=== PATIENT | female | born 1945 | race African-American/Black ===

== ENCOUNTER 2020-02-11 23:49 | Emergency (ER) | payer OTHER ==
--- OUTSIDE RECORDS SUMMARY | 2020-02-11 23:52 | XMS REPORT | Continuity of Care Document ---
:1945 Author Organization [facility] t Address [address] [place] [address] Care Team Providers Name Role Phone Unavailable Unavailable Unavailable Problems This patient has no known problems. Allergies, Adverse Reactions, Alerts This patient has no known allergies or adverse reactions. Medications Ordered Filled Start Stop Current Ordering Indication Dosage Frequency Signature Comments Components Source Medication Medication Date Date Medication? Clinician (SIG) Name Name Macroyan [place] 2019- No Na Garcia [address] [facility] daily with [facility] 00 :00 food l [facility] Sucralfate Sucralfate 2019- No Na Garcia [address] [facility]28 [facility] an [facility]:00 empty [facility] 00 :00 stomach l [facility] Cetirizine Cetirizine Yes Na Garcia [address] [facility] HCl HCl [facility] Ray Ray Yes Na Garcia [address] [facility] Aspirin EC Aspirin EC Devendra es - Low Dose Low Dose Memoria l [facility] Nasonex Nasonex Yes Na Garcia [address] [facility] [address] [facility] each [facility] - nostril [facility] Valsartan Valsartan Yes Na Garcia [address] [facility] Benzonatate Benzonatate Yes Na Garcia [address] [facility] NIFEdipine NIFEdipine Yes Na Garcia [address] [facility] ER ER on an [facility] - empty Memoria stomach l [facility] Montelukast Montelukast Yes Na Garcia [address] [facility] Sodium Sodium [facility] Protonix Protonix Yes Na Garcia [address] [facility] Simvastatin Simvastatin Yes Na Garcia [address] [facility] in the [facility] Spironolact Spironolact Yes Na Garcia [address] [facility] one one [facility] Metoprolol Metoprolol Yes Na Garcia [address] [facility] Tartrate Tartrate with food [facility] Procedures This patient has no known procedures. Encounters Start End Encounter Admission Attending Care Care Encounter Source Date/Time Date/Time Type Type Clinicians Facility Department ID 2019-12-19 2019-12-19 Outpatient [facility] [id number] [facility] 2019-12-13 2019-12-13 Outpatient [facility] [id number] [facility] 2019-10-01 2019-10-01 [facility] [id number] [facility] 15:30[facility]00 15:30:00 [employer] [facility] 2019-09-10 2019-09-10 Outpatient [facility]ML[facility] [id number] [facility] 2019-08-29 2019-08-29 [facility] [id number] [facility] 09:56:00 09:56:00 [facility] 2019-06-11 2019-06-11 [facility] [id number] [facility] 14:00:00 14:00:00 [facility] Results This patient has no known results.
[2020-02-12] MEDS ORDERED: MORPHINE 4 MG/ML SYR ONE (00:50)
[2020-02-12] MEDS ORDERED: ONDANSETRON 4 MG/2 ML VIAL ONE (00:50)
[2020-02-12] MEDS ORDERED: NA CHLORIDE 0.9% 1,000 ML ONE (00:51)
[2020-02-12 01:37] LABS: Absolute Lymphocytes (CBC) 2.7 K/uL (0.7-4.9); Basophils % 0.9 % (0-1.3); Hematocrit 36.4 % (36.0-45.0); Lymphocytes % 20.6 % (15.3-44.8); MPV 7.9 fL (7.6-11.3); RBC Red Blood Cell Count 4.35 M/uL (3.86-4.86)
[2020-02-12 01:55] LABS: ALT/SGPT 17 U/L (12-78); AST/SGOT 16 U/L (15-37); Albumin 3.9 g/dL (3.4-5.0); Alkaline Phosphatase 61 U/L (45-117); BUN Blood Urea Nitrogen 15 mg/dL (7-18); Bicarbonate 27 mmol/L (21-32); Bilirubin Direct < 0.1 mg/dL (0-0.2); Bilirubin Total 0.3 mg/dL (0.2-1.0); Glucose Level 91 mg/dL (74-106); Lipase 160 U/L (73-393); Protein, Total 8.9 g/dL (6.4-8.2); Sodium Level 137 mmol/L (136-145)
--- NOTE | 2020-02-12 03:31 | ER ---
Nurse's Notes [facility] Name: Jocelyn Taylor Age: 75 yrs Sex: Female : 1945 Arrival Date: 02/11/2020 Time: 23:51 Bed 16 Private MD: Diagnosis: Other and unspecified noninfective gastroenteritis and colitis Presentation: 02/11 00:03 Chief complaint: Patient states: abdominal pain that started this morning, nausea, dm5 vomited x 1 - bile, pain rated at 6/10 - 8/10 at its worst. Coronavirus screen: Client denies travel out of the [place] in the last 14 days. nausea, vomiting. Client presents with at least one sign or symptom that may indicate coronavirus-19. Standard/surgical mask placed on the client. Ebola Screen: Patient negative for fever greater than or equal to 101.5 degrees Fahrenheit, and additional compatible Ebola Virus Disease symptoms Patient denies exposure to infectious person. Patient denies travel to an Ebola-affected area in the 21 days before illness onset. No symptoms or risks identified at this time. Initial Sepsis Screen: Does the patient meet any 2 criteria? No. Patient's initial sepsis screen is negative. Does the patient have a suspected source of infection? Yes: Acute abdominal pain. Risk Assessment: Do you want to hurt yourself or someone else? Patient reports no desire to harm self or others. Onset of symptoms was February 11, 2020. 00:03 Method Of Arrival: Ambulatory dm5 00:03 Acuity: BLAS 3 dm5 Historical: - Allergies: 00:06 No Known Allergies; dm5 - PMHx: 00:06 High Cholesterol; Hypertension; GERD; seasonal allergies; dm5 - PSHx: 00:06 Hysterectomy; Cholecystectomy; Tonsillectomy; heart cath; dm5 - Immunization history:: Adult Immunizations up to date. - Family history:: not pertinent. - Social history:: Smoking status: Patient denies any tobacco usage or history of. Screenin:12 Abuse screen: Denies threats or abuse. Nutritional screening: No deficits noted. ll2 Tuberculosis screening: No symptoms or risk factors identified. Fall Risk None identified. Assessment: 02/10 23:55 General: Appears in no apparent distress. Behavior is calm, cooperative, appropriate ll2 for age. Pain: Complains of pain in right lower quadrant. Neuro: Level of Consciousness is awake, alert, obeys commands, Oriented to person, place, time, situation. Cardiovascular: Patient's skin is warm and dry. Respiratory: Airway is patent Respiratory effort is even, unlabored, Respiratory pattern is regular, symmetrical. GI: Bowel sounds present X 4 quads. Abd is soft Abdomen is tender to palpation in right lower quadrant. : No signs and/or symptoms were reported regarding the genitourinary system. EENT: No signs and/or symptoms were reported regarding the EENT system. Derm: Skin is intact, is healthy with good turgor, Skin is dry, Skin is normal, Skin temperature is warm. Musculoskeletal: Circulation, motion, and sensation intact. Range of motion: intact in all extremities. 02/11 00:55 Reassessment: Patient and/or family updated on plan of care and expected duration. Pain ll2 level reassessed. Patient is alert, oriented x 3, equal unlabored respirations, skin warm/dry/pink. 02:00 Reassessment: Patient and/or family updated on plan of care and expected duration. Pain ll2 level reassessed. Patient is alert, oriented x 3, equal unlabored respirations, skin warm/dry/pink. pt resting comfortably, denies pain at this time. 03:00 Reassessment: Patient and/or family updated on plan of care and expected duration. Pain ll2 level reassessed. Patient is alert, oriented x 3, equal unlabored respirations, skin warm/dry/pink. Vital Signs: 00:00 BP 115 / 45; Pulse 75; Resp 18; Temp 98.3; Pulse Ox 94% ; ll2 01:00 BP 116 / 57; Pulse 76; Resp 17; Pulse Ox 96% on R/A; ll2 02:00 BP 120 / 59; Pulse 71; Resp 18; Pulse Ox 95% on R/A; ll2 03:58 BP 104 / 53; Pulse 91; Resp 16; Temp 98.6; Pulse Ox 99% on R/A; ll2 ED Course: 02/10 23:51 Patient arrived in ED. am2 02/11 00:00 Arm band placed on right wrist. ll2 00:04 Triage completed. dm5 00:12 Poncho Rashid MD is Attending Physician. ma2 00:12 Patient has correct armband on for positive identification. Placed in gown. Bed in low ll2 position. Call light in reach. Side rails up X 1. 00:18 Mariah Ruano RN is Primary Nurse. ll2 02:55 CT Abd/Pelvis - IV Contrast Only In Process Unspecified. EDMS 03:54 No provider procedures requiring assistance completed. IV discontinued, intact, ll2 bleeding controlled, No redness/swelling at site. Pressure dressing applied. Administered Medications: 01:16 Drug: Zofran (Ondansetron) 4 mg Route: IVP; Site: left antecubital; ll2 02:15 Follow up: Response: No adverse reaction ll2 02:15 Follow up: Response: No adverse reaction; RASS: Alert and Calm (0) ll2 01:16 Drug: morphine 4 mg Route: IVP; Site: left antecubital; ll2 02:16 Follow up: Response: No adverse reaction; RASS: Alert and Calm (0) ll2 01:16 Drug: NS 0.9% 1000 ml Route: IV; Rate: 1000 ml; Site: left antecubital; ll2 03:50 Not Given (Physician Discretion): Rocephin 1 grams IV at calculated rate once; Given ll2 slow IV push per pharmacy instructions 03:51 Not Given (Physician Discretion): Flagyl 500 mg 100 ml IVPB at 200 ml/hr once over 30 ll2 mins 03:51 Drug: Flagyl 500 mg Route: PO; ll2 03:52 Follow up: Response: Medication administered at discharge. ll2 03:51 Not Given (Physician Discretion): cefPODOXime 100 mg PO once ll2 03:51 Drug: LevOfloxacin 500 mg Route: PO; ll2 03:52 Follow up: Response: Medication administered at discharge. ll2 Outcome: 03:30 Discharge ordered by . ma2 04:00 Discharged to home ambulatory. ll2 04:00 Condition: stable 04:00 Discharge instructions given to patient, Instructed on discharge instructions, follow up and referral plans. medication usage, Demonstrated understanding of instructions, follow-up care, medications, Prescriptions given X 3. 04:00 Patient left the ED. ll2 Signatures: Dispatcher [facility] Xiomara Mariscal RN RN dm5 Gela Armenta am2 Poncho Rashid MD MD ma2 Mariah Ruano, RN RN ll2
--- NOTE | 2020-02-12 03:31 | EDPHYS ---
Physician Documentation [facility] Name: Jocelyn Taylor Age: 75 yrs Sex: Female : 1945 Arrival Date: 02/11/2020 Time: 23:51 Bed 16 Private MD: ED Physician Poncho Rashid HPI: 02/11 00:43 This 75 yrs old Black Female presents to ER via Ambulatory with complaints of Abdominal ma2 Pain, Nausea. 00:43 The patient presents to the emergency department with nausea, vomiting. Onset: The ma2 symptoms/episode began/occurred gradually. Onset: The symptoms/episode began/occurred gradually, 1 day(s) ago. Possible causes: unknown. Associated signs and symptoms: Pertinent negatives: anorexia, constipation, dysuria, flatulence, GI bleeding. Severity of symptoms: At their worst the symptoms were mild in the emergency department the symptoms are unchanged. The patient has not experienced similar symptoms in the past. Historical: - Allergies: 00:06 No Known Allergies; dm5 - PMHx: 00:06 High Cholesterol; Hypertension; GERD; seasonal allergies; dm5 - PSHx: 00:06 Hysterectomy; Cholecystectomy; Tonsillectomy; heart cath; dm5 - Immunization history:: Adult Immunizations up to date. - Family history:: not pertinent. - Social history:: Smoking status: Patient denies any tobacco usage or history of. ROS: 00:43 Constitutional: Negative for fever, chills, and weight loss. ma2 00:43 All other systems are negative. Exam: 00:43 Constitutional: This is a well developed, well nourished patient who is awake, alert, ma2 and in no acute distress. Neck: Trachea midline, no thyromegaly or masses palpated, and no cervical lymphadenopathy. Supple, full range of motion without nuchal rigidity, or vertebral point tenderness. No Meningismus. Chest/axilla: Normal chest wall appearance and motion. Nontender with no deformity. No lesions are appreciated. Cardiovascular: Regular rate and rhythm with a normal S1 and S2. No gallops, murmurs, or rubs. Normal PMI, no JVD. No pulse deficits. Respiratory: Lungs have equal breath sounds bilaterally, clear to auscultation and percussion. No rales, rhonchi or wheezes noted. No increased work of breathing, no retractions or nasal flaring. Abdomen/GI: Soft, non-tender, with normal bowel sounds. No distension or tympany. No guarding or rebound. No evidence of tenderness throughout. Back: No spinal tenderness. No costovertebral tenderness. Full range of motion. Skin: Warm, dry with normal turgor. Normal color with no rashes, no lesions, and no evidence of cellulitis. MS/ Extremity: Pulses equal, no cyanosis. Neurovascular intact. Full, normal range of motion. Neuro: Awake and alert, GCS 15, oriented to person, place, time, and situation. Cranial nerves II-XII grossly intact. Motor strength 5/5 in all extremities. Sensory grossly intact. Cerebellar exam normal. Normal gait. Vital Signs: 00:00 BP 115 / 45; Pulse 75; Resp 18; Temp 98.3; Pulse Ox 94% ; ll2 01:00 BP 116 / 57; Pulse 76; Resp 17; Pulse Ox 96% on R/A; ll2 02:00 BP 120 / 59; Pulse 71; Resp 18; Pulse Ox 95% on R/A; ll2 03:58 BP 104 / 53; Pulse 91; Resp 16; Temp 98.6; Pulse Ox 99% on R/A; ll2 MDM: 00:12 Patient medically screened. [facility] 00:43 Differential diagnosis: cholecystitis, pancreatitis, appendicitis, diverticulitis, ms2 viral gastroenteritis, gastroenteritis. 03:29 Data reviewed: vital signs, nurses notes. Counseling: I had a detailed discussion with [facility] the patient and/or guardian regarding: the historical points, exam findings, and any diagnostic results supporting the discharge/admit diagnosis, the presence of at least one elevated blood pressure reading (>120/80) during this emergency department visit, the need for outpatient follow up. Response to treatment: the patient's symptoms have markedly improved after treatment. ED course: ct shows mild colitis wbc mildly elevated, vs wnl, her symptoms all resolved .. she want to go home, i explained that this could be an early inflammatory condition and she will return if symptoms worsen . 02/11 00:14 Order name: Basic Metabolic Panel [facility] 02/11 00:14 Order name: CBC with Diff [facility] 02/11 00:14 Order name: Hepatic Function [facility] 02/11 00:14 Order name: Lipase [facility] 02/11 01:40 Order name: CBC with Automated Diff; Complete Time: 01:58 EDMS 02/11 01:55 Order name: Basic Metabolic Panel; Complete Time: 01:58 EDMS 02/11 00:14 Order name: CT Abd/Pelvis - IV Contrast Only ma2 02/11 01:55 Order name: Liver (Hepatic) Function; Complete Time: 01:58 EDMS 02/11 01:55 Order name: Lipase; Complete Time: 01:58 EDMS 02/11 00:14 Order name: IV Saline Lock; Complete Time: 01:14 ma2 02/11 00:14 Order name: NPO; Complete Time: 01:40 ma2 Administered Medications: 01:16 Drug: Zofran (Ondansetron) 4 mg Route: IVP; Site: left antecubital; ll2 02:15 Follow up: Response: No adverse reaction ll2 02:15 Follow up: Response: No adverse reaction; RASS: Alert and Calm (0) ll2 01:16 Drug: morphine 4 mg Route: IVP; Site: left antecubital; ll2 02:16 Follow up: Response: No adverse reaction; RASS: Alert and Calm (0) ll2 01:16 Drug: NS 0.9% 1000 ml Route: IV; Rate: 1000 ml; Site: left antecubital; ll2 03:50 Not Given (Physician Discretion): Rocephin 1 grams IV at calculated rate once; Given ll2 slow IV push per pharmacy instructions 03:51 Not Given (Physician Discretion): Flagyl 500 mg 100 ml IVPB at 200 ml/hr once over 30 ll2 mins 03:51 Drug: Flagyl 500 mg Route: PO; ll2 03:52 Follow up: Response: Medication administered at discharge. ll2 03:51 Not Given (Physician Discretion): cefPODOXime 100 mg PO once ll2 03:51 Drug: LevOfloxacin 500 mg Route: PO; ll2 03:52 Follow up: Response: Medication administered at discharge. ll2 Disposition: 02/12/20 03:30 Discharged to Home. Impression: Other and unspecified noninfective gastroenteritis and colitis. - Condition is Stable. - Discharge Instructions: Colitis. - Prescriptions for Flagyl 500 mg Oral Tablet - take 1 tablet by ORAL route every 12 hours for 7 days; 14 tablet. cefpodoxime 100 mg Oral Tablet - take 1 tablet by ORAL route every 12 hours for 10 days take with food; 20 tablet. Diclofenac Sodium 75 mg Oral Tablet Sustained Release - take 1 tablet by ORAL route 2 times per day; 30 tablet. - Medication Reconciliation Form, Thank You Letter, Antibiotic Education, Prescription Opioid Use form. - Follow up: Private Physician; When: Tomorrow; Reason: Continuance of care. Signatures: Dispatcher [facility] Xiomara Mariscal RN RN dm5 Poncho Rashid MD MD ma2 Mariah Ruano RN RN ll2 Corrections: (The following items were deleted from the chart) 04:00 03:30 02/12/2020 03:30 Discharged to Home. Impression: Other and unspecified ll2 noninfective gastroenteritis and colitis. Condition is Stable. Discharge Instructions: Colitis. Prescriptions for Flagyl 500 mg Oral Tablet - take 1 tablet by ORAL route every 12 hours for 7 days; 14 tablet, cefpodoxime 100 mg Oral Tablet - take 1 tablet by ORAL route every 12 hours for 10 days take with food; 20 tablet, Diclofenac Sodium 75 mg Oral Tablet Sustained Release - take 1 tablet by ORAL route 2 times per day; 30 tablet. and Forms are Medication Reconciliation Form, Thank You Letter, Antibiotic Education, Prescription Opioid Use. Follow up: Private Physician; When: Tomorrow; Reason: Continuance of care. ma2
[2020-02-12] MEDS ORDERED: metroNIDAZOLE 500 MG TABLET ONE (04:03)
[2020-02-12] MEDS ORDERED: levoFLOXacin 500 MG TAB ONE (04:04)
--- NOTE | 2020-02-12 13:48 | RAD REPORT ---
EXAM DESCRIPTION: CT - Abdomen Pelvis W Contrast - 02/12/2020 6:57 am CLINICAL HISTORY: ABD PAIN COMPARISON: None. TECHNIQUE: CT ABDOMEN PELVIS WITH IV CONTRAST on 02/12/2020 12:14 AM RELIEF MATE This exam was performed according to our departmental dose-optimization program, which includes autom ated exposure control, adjustment of the mA and/or kV according to patient size and/or use of iterati ve reconstruction technique. FINDINGS: Lower lungs are clear. Abdomen: Liver is fatty in attenuation. There is a tiny cyst in the anterior liver. There is no bilia ry dilatation. Cholecystectomy was performed. The pancreas and spleen are normal in appearance. The a drenal glands and kidneys are unremarkable. Abdominal aorta is normal in course and caliber without aneurysm. There is no free air. There is no r etroperitoneal adenopathy. Pelvis: There are several fluid-filled small bowel loops in the left abdomen. Urinary bladder is unre markable. There is no free fluid. Appendix is normal. There is mild inflammation the right lower quad rant of unclear significance. Skeleton: There are no acute osseous findings. No suspicious bony lesions. IMPRESSION: Difficult to exclude early small bowel obstruction. Nonspecific inflammatory changes in the right lower quadrant with normal appendix. Electronically signed by: Hussein Hearn MD 02/12/2020 3:07 AM RELIEF MATE Due to temporary technical issues with the PACS/Fluency reporting system, reports are being signed by the in house radiologists without review as a courtesy to insure prompt reporting. The interpreting radiologist is fully responsible for the content of the report.
[2020-02-13 05:24] VITALS: BP 104/53; TEMP 98.6; O2SAT 99
== END 2020-02-12 04:00 | disposition home or self-care (01) ==
LOC: ER 23:49
DX: K52.89 Other specified noninfective gastroenteritis and colitis (principal); I10 Essential (primary) hypertension
CPT/HCPCS: 85025; 80048; 36415; 80076; 83690; 74177; 96375; 96374; 99283; Q9967; J7030; J2405

== ENCOUNTER 2021-04-21 06:25 | Day surgery (SDC) | payer OTHER ==
[2021-04-21] MEDS ORDERED: Ringers Lactate 1,000 ML IV ONE (06:37)
[2021-04-21] MEDS ORDERED: LIDOCAINE 1% W/EPI 1:100,000 MDV 50 ML VIAL ONE (07:14)
[2021-04-21] MEDS ORDERED: dexAMETHasone 10 MG/ML VIAL ONE (07:27)
[2021-04-21] MEDS ORDERED: propofoL 200 MG/20 ML VIAL IV ONE (07:27)
[2021-04-21] MEDS ORDERED: LIDOCAINE 2% MPF 5 ML VIAL ONE (07:27)
[2021-04-21] MEDS ORDERED: FENTANYL CITR 100 MCG/2 ML ONE (07:27)
[2021-04-21] MEDS ORDERED: ONDANSETRON 4 MG/2 ML VIAL ONE (07:36)
[2021-04-21] MEDS ORDERED: EPHEDRINE SULF 50 MG/ML VIAL ONE (07:47)
[2021-04-21] MEDS ORDERED: SILVER NITRATE 1 APPL TOP ONE ×2 (08:04→08:42)
[2021-04-21] MEDS ORDERED: HYDROCODONE/APAP 5/325 MG TAB PO PRN (08:47)
[2021-04-21] MEDS ORDERED: ASCORBIC ACID 500 MG TABLET PO SCH (09:00)
[2021-04-21] MEDS ORDERED: HOME MED 1 EA UNK (Spironolactone [Spironolactone] 50 MG Tablet) PO SCH (09:00)
[2021-04-21] MEDS ORDERED: MOMETASONE FUROATE PUMP NS SCH (09:00)
[2021-04-21] MEDS ORDERED: HOME MED 1 EA UNK (Metoprolol Tartrate [Metoprolol Tartrate] 100 MG Tablet) PO SCH (09:00)
[2021-04-21] MEDS ORDERED: PANTOPRAZOLE 40MG TABLET PO SCH (09:00)
[2021-04-21] MEDS ORDERED: HOME MED 1 EA UNK (Valsartan [Diovan] 320 MG Tablet) PO SCH (09:00)
[2021-04-21] MEDS ORDERED: HOME MED 1 EA UNK (Omega-3 Fatty Acids [Omega-3] 1,000 MG Capsule) PO SCH (09:00)
[2021-04-21] MEDS ORDERED: VITAMIN D 5,000 UNIT CAP PO SCH (09:00)
[2021-04-21] MEDS ORDERED: HOME MED 1 EA UNK (Cetirizine Hcl [Cetirizine Hcl] 10 MG Tablet) PO SCH (09:00)
[2021-04-21] MEDS ORDERED: NIFEDIPINE XL 30 MG TABLET PO SCH (09:00)
[2021-04-21] MEDS ORDERED: HOME MED 1 EA UNK (Biotin [Biotin] 1 MG Capsule) PO SCH (09:00)
[2021-04-21] MEDS ORDERED: HOME MED 1 EA UNK (Multivitamin [Multivitamin] Tablet) PO SCH (09:00)
[2021-04-21] MEDS ORDERED: HOME MED 1 EA UNK (L.Acidoph,Paracasei, B.Lactis [Probiotic] Capsule) PO SCH (09:00)
[2021-04-21 09:07] VITALS: TEMP 97.5
[2021-04-21 09:11] VITALS: BP 122/65; O2SAT 98
--- NOTE | 2021-04-21 09:12 | P.BOP ---
Preoperative diagnosis: PMB, AMH, VVA Postoperative diagnosis: same Primary procedure: Vulvar and vaginal colposcopy, cystourethroscopy Gas Jockey: NONE,NONE Estimated blood loss: min Specimen: rt vulvar (inner labia minora) Rt fornix, tana-urethral Findings: rt flat tumor, and forniceal neovascularization Anesthesia: MAC Transferred to: Recovery Room Condition: Good
[2021-04-21] MEDS ORDERED: HOME MED 1 EA UNK (Simvastatin [Simvastatin] 40 MG Tablet) PO SCH (21:00)
[2021-04-21] MEDS ORDERED: MONTELUKAST 10 MG TAB PO SCH (21:00)
[2021-04-23] MEDS ORDERED: ASPIRIN EC 81 MG TAB PO SCH (09:00)
--- NOTE | 2021-04-23 10:30 | OP ---
Date of Procedure: 04/21/2021 Surgeon: Carmela Metzger MD Automotive Engineering Teacher: No assistants. Preoperative Diagnoses: Postmenopausal bleeding in a post hysterectomy patient, asymptomatic microsc opic hematuria, vulvovaginal atrophy. Postoperative Diagnoses: Postmenopausal bleeding in a post hysterectomy patient, asymptomatic micros copic hematuria, vulvovaginal atrophy. Procedures Performed: Vulvar and vaginal colposcopy, cystourethroscopy. Anesthesia: MAC. Estimated Blood Loss: Minimal. Specimens: Right vulvar (inner labia minor) and right fornix/periurethral specimens. 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 This is in the right paraurethral area. Complications: No complications. Drains: No drains. Condition: Stable. Ebl: Minimal. Indications: The patient is a 76-year-old female, presented with postmenopausal bleeding. She is st atus post hysterectomy. The vaginal vault was clear and could not find a source of bleeding. On her urine dip and on microscopy, she had asymptomatic microscopic hematuria. Description Of Procedure: So, she was consented for vulvar and vaginal colposcopy, possible biopsies and evaluation of the bladder and urethra with a cystourethroscopy for her image. She was consented and brought to the OR. She was placed in supine fashion on the operating table. General anesthesia was given. She was placed in dorsal lithotomy position. SCDs were started. Vulva and vagina were all painted with dilute acetic acid. Then, after a minute, vulvar colposcopy was performed. Initial visualization before the application of vinegar was normal accepting for the new vascular changes ri ght underneath the urethra and the right forniceal area, periurethral area. Then, on palpation, I co uld feel the tough spots on this side. Then, after looking with the microscope and the colposcope, I found that there were some vascular changes in the center of this flat thick lesion on the right lab ia. So, I took a look at it. Punch biopsies with 3 mm punches were done x2. Then, these were cut w ith scissors and handed out for permanent pathology. On the periurethral area, another biopsy was ta jono. Then, hemostasis was secured with the help of silver nitrate stick and the patient was complete ly hemostatic. She was given some pain medications. After finishing the vulvar and vaginal part, th en cystoscopy was performed with a 30-degree lens, normal saline and 17-Belarusian sheath. The entire bl adder was well visualized. No evidence of any tumor in the bladder or other lesions. No abnormal ve ssels. No evidence of any diverticula or stones. The entire bladder was well visualized. During th e exit, the lens was changed to 0 degree to vinegar with the urethroscopy and it was normal, unremark able. All the instruments were removed. Instrument, needle, and sponge counts were correct at the e nd of the case. The patient tolerated the procedure well. She was recovered from anesthesia and sanchez en to PACU in stable condition. She has a 1-week follow up with me. CARLA Voice ID: [id number] Report ID: [id number]
== END 2021-04-21 10:15 | disposition home or self-care (01) ==
LOC: OR 06:25
PROVIDERS: ATTEND Obstetrics & Gynecology
PROC: 0UJH8ZZ Inspection of Vagina and Cul-de-sac, Via Natural or Artificial Opening Endoscopic (ICD-10-PCS; 2021-04-21)
PROC: 0TBD8ZX Excision of Urethra, Via Natural or Artificial Opening Endoscopic, Diagnostic (ICD-10-PCS; 2021-04-21)
PROC: 0UJH8ZZ Inspection of Vagina and Cul-de-sac, Via Natural or Artificial Opening Endoscopic (ICD-10-PCS; principal; 2021-04-21 07:30)
DX: N95.0 Postmenopausal bleeding (principal); N95.2 Postmenopausal atrophic vaginitis; R31.29 Other microscopic hematuria; I10 Essential (primary) hypertension
CPT/HCPCS: 88305; 57420; 56821; 52204; J2704; J3010; J1100; J7120; J2405

== ENCOUNTER 2022-10-11 13:40 | Emergency (ER) | payer OTHER ==
--- OUTSIDE RECORDS SUMMARY | 2022-10-11 13:45 | XMS REPORT | Continuity of Care Document ---
:1945 Author Organization [facility] t Address [address] [place] [address] Care Team Providers Name Role Phone Michelle Montes De Oca Attending Clinician Unavailable Vandana Bruno Attending Clinician Unavailable Rosi Garcia Attending Clinician Unavailable YULIANA GOMEZ Attending Clinician Unavailable Payers Payer Name Policy Type Policy Number Effective Date Expiration Date S ource AETNA MEDICARE 53 [id number] 2019 Common S pirit 00:00:00 - [facility] AETNA MEDICARE [id number] 2019 ADV 00:00:00 Problems Condition Condition Condition Status Onset Resolution Last Treating Co mments Source Name Details Category Date Date Treatment Clinician Date [id number] Stage 3b Problem Comm on chronic Spirit kidney - [facility]I disease ([facility] [id number] 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 [facility] [id number] Stage 4 Problem Commo n chronic Spirit kidney - [facility] disease [facility] [id number] Essential Problem Comm on hypertensi Spirit on - [facility] [id number] +5th digit Problem Co mmon eff Spirit 11/22/19*CK - [facility]I D (chronic kidney [facility] disease), Medical stage III Center [id number] Anemia of Problem Com mon other Spirit chronic - [facility] disease [facility] [id number] Gastroesop Problem Co mmon hageal [facility] reflux [facility] Center specified [id number] Eye muscle Problem Co mmon twitches Spirit - [facility] [id number] Seasonal Problem Comm on allergies [facility] [id number] Mixed Problem Common hyperlipid [facility] emia [facility] Hydrourete Hydrourete Problem C ommon r r, left [facility] [id number] Chronic Problem Commo n kidney Spirit disease, - [facility] stage 3a [facility] [id number] Primary Problem Comm on osteoarthr Spirit itis [facility] right knee [facility] [id number] Acute pain Problem Com mon of right [facility] knee [facility] Allergies, Adverse Reactions, Alerts Allergy Allergy Status Severity Reaction(s) Onset Inactive Treating Comm ents Source Name Type Date Date Clinician NO KNOWN Drug Active Univers ALLERGIE Class ity of S [facility] Social History Social Habit Start Date Stop Date Quantity Comments Source History of Tobacco Use Co mmon [facility] Sex Assigned At Com mon [facility] Smoking Status Start Date Stop Date Source Never Smoker [facility] Medications Ordered Filled Start Stop Current Ordering Indication Dosage Frequency Signature Comments Components Source Medication Medication Date Date Medication? Clinician (SIG) Name Name Zofran 4 MG Zofran 4 MG No BID Zofran 4 5-05 MG 00:00: 00 Meclizine Meclizine No 1{table Meclizine HCl 25 MG HCl 25 MG 5-05 t_as_ne HCl 25 MG 00:00: eded} 00 Meclizine Meclizine No 1{table Meclizine HCl 25 MG HCl 25 MG 5-05 t_as_ne HCl 25 MG 00:00: eded} 00 Zofran 4 MG Zofran 4 MG 2021- No BID Zofran 4 5-05 MG 00:00: 00 Meclizine Meclizine 2021- No 1{table Meclizine HCl 25 MG HCl 25 MG 5-05 t_as_ne HCl 25 MG 00:00: eded} 00 Zofran 4 MG Zofran 4 MG 2021-0 No BID Zofran 4 5-05 MG 00:00: 00 Zofran 4 MG Zofran 4 MG 2021-0 No BID Zofran 4 5-05 MG 00:00: 00 Meclizine Meclizine 2-0 No 1{table Meclizine HCl 25 MG HCl 25 MG 5-05 t_as_ne HCl 25 MG 00:00: eded} 00 Meclizine Meclizine 2-0 No 1{table Meclizine HCl 25 MG HCl 25 MG 5-05 t_as_ne HCl 25 MG 00:00: eded} 00 Zofran 4 MG Zofran 4 MG 2-0 No BID Zofran 4 5-05 MG 00:00: 00 Zofran 4 MG Zofran 4 MG 2-0 No BID Zofran 4 5-05 MG 00:00: 00 Meclizine Meclizine 2-0 No 1{table Meclizine HCl 25 MG HCl 25 MG 5-05 t_as_ne HCl 25 MG 00:00: eded} 00 Zofran 4 MG Zofran 4 MG 2-0 No BID Zofran 4 5-05 MG 00:00: 00 Meclizine Meclizine 2-0 No 1{table Meclizine HCl 25 MG HCl 25 MG 5-05 t_as_ne HCl 25 MG 00:00: eded} 00 Bupivicaine Bupivicaine 2020-0 No 2.5mg Common [place] 3-29 Spirit 00:00: - [facility]I 00 [facility] Kenalog Kenalog 2020-0 No 40mg Common (Triamcinol (Triamcinol 3-29 S pirit one) one) 00:00: - CHI 00 [facility] Bupivicaine Bupivicaine 2020-0 No 2.5mg Common [place] 3-29 Spirit 00:00: - CHI 00 [facility] Kenalog Kenalog 2020-0 No 40mg Common (Triamcinol (Triamcinol 3-29 S pirit one) one) 00:00: - CHI 00 [facility] Bupivicaine Bupivicaine 1-0 No 2.5mg Common [place] 3-29 Spirit 00:00: - CHI 00 [facility] Kenalog Kenalog 2020-0 No 40mg Common (Triamcinol (Triamcinol 3-29 S pirit one) one) 00:00: - CHI 00 [facility] Bupivicaine Bupivicaine 2020-0 No 2.5mg Common [place] 3-29 Spirit 00:00: - CHI 00 [facility] Kenalog Kenalog 2020-0 No 40mg Common (Triamcinol (Triamcinol 3-29 S pirit one) one) 00:00: - CHI 00 [facility] Bupivicaine Bupivicaine 2020-0 No 2.5mg Common [place] 3-29 Spirit 00:00: - CHI 00 [facility] Kenalog Kenalog 2020-0 No 40mg Common (Triamcinol (Triamcinol 3-29 S pirit one) one) 00:00: - CHI 00 [facility] Bupivicaine Bupivicaine 2020-0 No 2.5mg Common [place] 3-29 Spirit 00:00: - CHI 00 [facility] Kenalog Kenalog 2020-0 No 40mg Common (Triamcinol (Triamcinol 3-29 S pirit one) one) 00:00: - CHI 00 [facility] Bupivicaine Bupivicaine 2020-0 No 2.5mg Common [place] 3-29 Spirit 00:00: - CHI 00 [facility] Kenalog Kenalog 2020-0 No 40mg Common (Triamcinol (Triamcinol 3-29 S pirit one) one) 00:00: - CHI 00 [facility] Bupivicaine Bupivicaine 2020-0 No 2.5mg Common [place] 3-29 Spirit 00:00: - CHI 00 [facility] Kenalog Kenalog 2020-0 No 40mg Common (Triamcinol (Triamcinol 3-29 S pirit one) one) 00:00: - CHI 00 [facility] Macrobid Macrobid 2020- No Na Garcia 1 capsule Common 09-30 twice Spirit 00:00: 00:00 daily with - CHI 00 :00 food [facility] Sucralfate Sucralfate 2019-0 2020- No Na Garcia 1 tablet Common 08-28 on an Spirit 00:00: 00:00 empty - CHI 00 :00 stomach [facility] Cetirizine Cetirizine Yes Na Garcia 1 tablet Common HCl HCl [facility] Ray Ray Yes Na Garcia 1 tablet Common Aspirin EC Aspirin EC Spi rit Low Dose Low Dose [facility] Nasonex Nasonex Yes Na Garcia 2 sprays Co mmon in each Spirit nostril [facility] Valsartan Valsartan Yes Na Garcia 1 tablet Common [facility] Benzonatate Benzonatate Yes Na Garcia 1 capsule Common [facility] NIFEdipine NIFEdipine Yes Na Garcia 1 tablet Common ER ER on an Spirit empty - CHI stomach [facility] Montelukast Montelukast Yes Na Garcia 1 tablet Common Sodium Sodium [facility] Protonix Protonix Yes Na Garcia 1 tablet Common [facility] Simvastatin Simvastatin Yes Na Garcia 1 tablet Common in the [facility] evening [facility] Spironolact Spironolact Yes Na Garcia 1 tablet Common one one [facility] Metoprolol Metoprolol Yes Na Garcia 1 tablet Common Tartrate Tartrate with food Sp [facility] Protonix 40 Protonix 40 No 1{table QD Protonix MG MG t} 40 MG Sucralfate Sucralfate No Sucralfate 1 GM 1 GM 1 GM Simvastatin Simvastatin No 1{table QD Simvastati 40 MG 40 MG t_in_th n 40 MG e_eveni ng} Benzonatate Benzonatate No 1{capsu TID Benzonatat 200 MG 200 MG le} e 200 MG Magnesium Magnesium No Magnesium Montelukast Montelukast No Montelukas Sodium 10 Sodium 10 t Sodium MG MG 10 MG NIFEdipine NIFEdipine No 1{table QD NIFEdipine ER 60 MG ER 60 MG t_on_an ER 60 MG _empty_ stomach } Cetirizine Cetirizine No 1{table QD Cetirizine HCl 10 MG HCl 10 MG t} HCl 10 MG Pantoprazol Pantoprazol No Pantoprazo e Sodium 40 e Sodium 40 le Sodium MG MG 40 MG Spironolact Spironolact No Spironolac one 50 MG one 50 MG tone 50 MG Nasonex 50 Nasonex 50 No 2{spray QD Nasonex 50 MCG/ACT MCG/ACT s_in_ea MCG/ACT ch_nost ril} Metoprolol Metoprolol No 1{table BID Metoprolol Tartrate Tartrate t_with_ Tartrate 100 MG 100 MG food} 100 MG Simvastatin Simvastatin No Simvastati 40 MG 40 MG n 40 MG Pantoprazol Pantoprazol No Pantoprazo e Sodium e Sodium le Sodium Metoprolol Metoprolol No Metoprolol Tartrate Tartrate Tartrate 100 MG 100 MG 100 MG NIFEdipine NIFEdipine No 1{table QD NIFEdipine ER 60 MG ER 60 MG t_on_an ER 60 MG _empty_ stomach } Valsartan Valsartan No 1{table QD Valsartan 320 MG 320 MG t} 320 MG Valsartan Valsartan No Valsartan 320 MG 320 MG 320 MG Spironolact Spironolact No 1{table QD Spironolac one 50 MG one 50 MG t} tone 50 MG Ray Ray No 1{table QD Ray Aspirin EC Aspirin EC t} Aspirin EC Low Dose 81 Low Dose 81 Low Dose MG MG 81 MG Azithromyci Azithromyci No QD Azithromyc n 250 MG n 250 MG in 250 MG Sucralfate Sucralfate No Sucralfate 1 GM 1 GM 1 GM Cetirizine Cetirizine No Cetirizine HCl 10 MG HCl 10 MG HCl 10 MG Aptible No 1{table QD Ray Aspirin EC Aspirin EC t} Aspirin EC Low Dose 81 Low Dose 81 Low Dose MG MG 81 MG Simvastatin Simvastatin No Simvastati 40 MG 40 MG n 40 MG Nasonex 50 Nasonex 50 No 2{spray QD Nasonex 50 MCG/ACT MCG/ACT s_in_ea MCG/ACT ch_nost ril} Montelukast Montelukast No Montelukas Sodium 10 Sodium 10 t Sodium MG MG 10 MG Pantoprazol Pantoprazol No Pantoprazo e Sodium e Sodium le Sodium Spironolact Spironolact No Spironolac one 50 MG one 50 MG tone 50 MG Pantoprazol Pantoprazol No Pantoprazo e Sodium 40 e Sodium 40 le Sodium MG MG 40 MG Albuterol Albuterol No 2{puffs Albuterol Sulfate HFA Sulfate HFA } Sulfate 108 (90 108 (90 HFA 108 Base) Base) (90 Base) MCG/ACT MCG/ACT MCG/ACT NIFEdipine NIFEdipine No 1{table QD NIFEdipine ER 60 MG ER 60 MG t_on_an ER 60 MG _empty_ stomach } Simvastatin Simvastatin No 1{table QD Simvastati 40 MG 40 MG t_in_th n 40 MG e_eveni ng} predniSONE predniSONE No QD predniSONE 10 MG 10 MG 10 MG Spironolact Spironolact No 1{table QD Spironolac one 50 MG one 50 MG t} tone 50 MG Protonix 40 Protonix 40 No 1{table QD Protonix MG MG t} 40 MG Metoprolol Metoprolol No 1{table BID Metoprolol Tartrate Tartrate t_with_ Tartrate 100 MG 100 MG food} 100 MG Valsartan Valsartan No Valsartan 320 MG 320 MG 320 MG NIFEdipine NIFEdipine No 1{table QD NIFEdipine ER 60 MG ER 60 MG t_on_an ER 60 MG _empty_ stomach } Magnesium Magnesium No Magnesium Benzonatate Benzonatate No 1{capsu TID Benzonatat 200 MG 200 MG le} e 200 MG Metoprolol Metoprolol No Metoprolol Tartrate Tartrate Tartrate 100 MG 100 MG 100 MG Cetirizine Cetirizine No Cetirizine HCl 10 MG HCl 10 MG HCl 10 MG Simvastatin Simvastatin No Simvastati 40 MG 40 MG n 40 MG Spironolact Spironolact No 1{table QD Spironolac one 50 MG one 50 MG t} tone 50 MG NIFEdipine NIFEdipine No 1{table QD NIFEdipine ER 60 MG ER 60 MG t_on_an ER 60 MG _empty_ stomach } Valsartan Valsartan No Valsartan 320 MG 320 MG 320 MG Simvastatin Simvastatin No 1{table QD Simvastati 40 MG 40 MG t_in_th n 40 MG e_eveni ng} Montelukast Montelukast No Montelukas Sodium 10 Sodium 10 t Sodium MG MG 10 MG Spironolact Spironolact No Spironolac one 50 MG one 50 MG tone 50 MG Nasonex 50 Nasonex 50 No 2{spray QD Nasonex 50 MCG/ACT MCG/ACT s_in_ea MCG/ACT ch_nost ril} Pantoprazol Pantoprazol No Pantoprazo e Sodium 40 e Sodium 40 le Sodium MG MG 40 MG predniSONE predniSONE No QD predniSONE 10 MG 10 MG 10 MG Metoprolol Metoprolol No 1{table BID Metoprolol Tartrate Tartrate t_with_ Tartrate 100 MG 100 MG food} 100 MG Benzonatate Benzonatate No 1{capsu TID Benzonatat 200 MG 200 MG le} e 200 MG Sucralfate Sucralfate No Sucralfate 1 GM 1 GM 1 GM Ray Ray No 1{table QD Ray Aspirin EC Aspirin EC t} Aspirin EC Low Dose 81 Low Dose 81 Low Dose MG MG 81 MG Metoprolol Metoprolol No Metoprolol Tartrate Tartrate Tartrate 100 MG 100 MG 100 MG NIFEdipine NIFEdipine No 1{table QD NIFEdipine ER 60 MG ER 60 MG t_on_an ER 60 MG _empty_ stomach } Magnesium Magnesium No Magnesium Protonix 40 Protonix 40 No 1{table QD Protonix MG MG t} 40 MG Azithromyci Azithromyci No QD Azithromyc n 250 MG n 250 MG in 250 MG Metoprolol Metoprolol No Metoprolol Tartrate Tartrate Tartrate 100 MG 100 MG 100 MG Azithromyci Azithromyci No QD Azithromyc n 250 MG n 250 MG in 250 MG NIFEdipine NIFEdipine No 1{table QD NIFEdipine ER 60 MG ER 60 MG t_on_an ER 60 MG _empty_ stomach } Sucralfate Sucralfate No Sucralfate 1 GM 1 GM 1 GM Spironolact Spironolact No Spironolac one 50 MG one 50 MG tone 50 MG Simvastatin Simvastatin No Simvastati 40 MG 40 MG n 40 MG Valsartan Valsartan No Valsartan 320 MG 320 MG 320 MG Valsartan Valsartan No 1{table QD Valsartan 320 MG 320 MG t} 320 MG NIFEdipine NIFEdipine No 1{table QD NIFEdipine ER 60 MG ER 60 MG t_on_an ER 60 MG _empty_ stomach } Pantoprazol Pantoprazol No Pantoprazo e Sodium 40 e Sodium 40 le Sodium MG MG 40 MG Cetirizine Cetirizine No Cetirizine HCl 10 MG HCl 10 MG HCl 10 MG Ray Ray No 1{table QD Ray Aspirin EC Aspirin EC t} Aspirin EC Low Dose 81 Low Dose 81 Low Dose MG MG 81 MG Magnesium Magnesium No Magnesium predniSONE predniSONE No QD predniSONE 10 MG 10 MG 10 MG Nasonex 50 Nasonex 50 No 2{spray QD Nasonex 50 MCG/ACT MCG/ACT s_in_ea MCG/ACT ch_nost ril} Protonix 40 Protonix 40 No 1{table QD Protonix MG MG t} 40 MG Benzonatate Benzonatate No 1{capsu TID Benzonatat 200 MG 200 MG le} e 200 MG Metoprolol Metoprolol No 1{table BID Metoprolol Tartrate Tartrate t_with_ Tartrate 100 MG 100 MG food} 100 MG Spironolact Spironolact No 1{table QD Spironolac one 50 MG one 50 MG t} tone 50 MG Montelukast Montelukast No Montelukas Sodium 10 Sodium 10 t Sodium MG MG 10 MG Simvastatin Simvastatin No 1{table QD Simvastati 40 MG 40 MG t_in_th n 40 MG e_eveni ng} Azithromyci Azithromyci No QD Azithromyc n 250 MG n 250 MG in 250 MG Nasonex 50 Nasonex 50 No 2{spray QD Nasonex 50 MCG/ACT MCG/ACT s_in_ea MCG/ACT ch_nost ril} Metoprolol Metoprolol No Metoprolol Tartrate Tartrate Tartrate 100 MG 100 MG 100 MG Sucralfate Sucralfate No Sucralfate 1 GM 1 GM 1 GM Simvastatin Simvastatin No Simvastati 40 MG 40 MG n 40 MG Spironolact Spironolact No Spironolac one 50 MG one 50 MG tone 50 MG Valsartan Valsartan No 1{table QD Valsartan 320 MG 320 MG t} 320 MG NIFEdipine NIFEdipine No 1{table QD NIFEdipine ER 60 MG ER 60 MG t_on_an ER 60 MG _empty_ stomach } Pantoprazol Pantoprazol No Pantoprazo e Sodium 40 e Sodium 40 le Sodium MG MG 40 MG Cetirizine Cetirizine No Cetirizine HCl 10 MG HCl 10 MG HCl 10 MG Ray Ray No 1{table QD Ray Aspirin EC Aspirin EC t} Aspirin EC Low Dose 81 Low Dose 81 Low Dose MG MG 81 MG Magnesium Magnesium No Magnesium predniSONE predniSONE No QD predniSONE 10 MG 10 MG 10 MG Valsartan Valsartan No Valsartan 320 MG 320 MG 320 MG Protonix 40 Protonix 40 No 1{table QD Protonix MG MG t} 40 MG Benzonatate Benzonatate No 1{capsu TID Benzonatat 200 MG 200 MG le} e 200 MG NIFEdipine NIFEdipine No 1{table QD NIFEdipine ER 60 MG ER 60 MG t_on_an ER 60 MG _empty_ stomach } Metoprolol Metoprolol No 1{table BID Metoprolol Tartrate Tartrate t_with_ Tartrate 100 MG 100 MG food} 100 MG Spironolact Spironolact No 1{table QD Spironolac one 50 MG one 50 MG t} tone 50 MG Montelukast Montelukast No Montelukas Sodium 10 Sodium 10 t Sodium MG MG 10 MG Simvastatin Simvastatin No 1{table QD Simvastati 40 MG 40 MG t_in_th n 40 MG e_eveni ng} Valsartan Valsartan No Valsartan 320 MG 320 MG 320 MG Spironolact Spironolact No Spironolac one 50 MG one 50 MG tone 50 MG Ray Ray No 1{table QD Ray Aspirin EC Aspirin EC t} Aspirin EC Low Dose 81 Low Dose 81 Low Dose MG MG 81 MG Metoprolol Metoprolol No Metoprolol Tartrate Tartrate Tartrate 100 MG 100 MG 100 MG Magnesium Magnesium No Magnesium NIFEdipine NIFEdipine No 1{table QD NIFEdipine ER 60 MG ER 60 MG t_on_an ER 60 MG _empty_ stomach } NIFEdipine NIFEdipine No 1{table QD NIFEdipine ER 60 MG ER 60 MG t_on_an ER 60 MG _empty_ stomach } Simvastatin Simvastatin No Simvastati 40 MG 40 MG n 40 MG Pantoprazol Pantoprazol No Pantoprazo e Sodium 40 e Sodium 40 le Sodium MG MG 40 MG predniSONE predniSONE No QD predniSONE 10 MG 10 MG 10 MG Benzonatate Benzonatate No 1{capsu TID Benzonatat 200 MG 200 MG le} e 200 MG Montelukast Montelukast No Montelukas Sodium 10 Sodium 10 t Sodium MG MG 10 MG Cetirizine Cetirizine No Cetirizine HCl 10 MG HCl 10 MG HCl 10 MG Sucralfate Sucralfate No Sucralfate 1 GM 1 GM 1 GM Simvastatin Simvastatin No 1{table QD Simvastati 40 MG 40 MG t_in_th n 40 MG e_eveni ng} Metoprolol Metoprolol No 1{table BID Metoprolol Tartrate Tartrate t_with_ Tartrate 100 MG 100 MG food} 100 MG Nasonex 50 Nasonex 50 No 2{spray QD Nasonex 50 MCG/ACT MCG/ACT s_in_ea MCG/ACT ch_nost ril} Spironolact Spironolact No 1{table QD Spironolac one 50 MG one 50 MG t} tone 50 MG Protonix 40 Protonix 40 No 1{table QD Protonix MG MG t} 40 MG Azithromyci Azithromyci No QD Azithromyc n 250 MG n 250 MG in 250 MG Protonix 40 Protonix 40 No 1{table QD Protonix MG MG t} 40 MG Magnesium Magnesium No Magnesium Metoprolol Metoprolol No 1{table BID Metoprolol Tartrate Tartrate t_with_ Tartrate 100 MG 100 MG food} 100 MG Spironolact Spironolact No 1{table QD Spironolac one 50 MG one 50 MG t} tone 50 MG NIFEdipine NIFEdipine No 1{table QD NIFEdipine ER 30 MG ER 30 MG t_on_an ER 30 MG _empty_ stomach } Cetirizine Cetirizine No Cetirizine HCl 10 MG HCl 10 MG HCl 10 MG Benzonatate Benzonatate No 1{capsu TID Benzonatat 200 MG 200 MG le} e 200 MG Turmeric Turmeric No Turmeric 400 MG 400 MG 400 MG Spironolact Spironolact No Spironolac one 50 MG one 50 MG tone 50 MG Valsartan Valsartan No Valsartan 320 MG 320 MG 320 MG Simvastatin Simvastatin No 1{table QD Simvastati 40 MG 40 MG t_in_ n 40 MG e_eveni ng} Pantoprazol Pantoprazol No Pantoprazo e Sodium 40 e Sodium 40 le Sodium MG MG 40 MG Valsartan Valsartan No 1{table QD Valsartan 320 MG 320 MG t} 320 MG Nasonex 50 Nasonex 50 No 2{spray QD Nasonex 50 MCG/ACT MCG/ACT s_in_ea MCG/ACT ch_nost ril} Sucralfate Sucralfate No Sucralfate 1 GM 1 GM 1 GM NIFEdipine NIFEdipine No 1{table QD NIFEdipine ER 30 MG ER 30 MG t_on_an ER 30 MG _empty_ stomach } Simvastatin Simvastatin No Simvastati 40 MG 40 MG n 40 MG Montelukast Montelukast No Montelukas Sodium 10 Sodium 10 t Sodium MG MG 10 MG Ray Ray No 1{table QD Ray Aspirin EC Aspirin EC t} Aspirin EC Low Dose 81 Low Dose 81 Low Dose MG MG 81 MG Ray Ray No 1{table QD Ray Aspirin EC Aspirin EC t} Aspirin EC Low Dose 81 Low Dose 81 Low Dose MG MG 81 MG Simvastatin Simvastatin No Simvastati 40 MG 40 MG n 40 MG Protonix 40 Protonix 40 No 1{table QD Protonix MG MG t} 40 MG NIFEdipine NIFEdipine No 1{table QD NIFEdipine ER 30 MG ER 30 MG t_on_an ER 30 MG _empty_ stomach } Magnesium Magnesium No Magnesium Valsartan Valsartan No 1{table QD Valsartan 320 MG 320 MG t} 320 MG NIFEdipine NIFEdipine No 1{table QD NIFEdipine ER 30 MG ER 30 MG t_on_an ER 30 MG _empty_ stomach } Pantoprazol Pantoprazol No Pantoprazo e Sodium 40 e Sodium 40 le Sodium MG MG 40 MG Montelukast Montelukast No Montelukas Sodium 10 Sodium 10 t Sodium MG MG 10 MG Valsartan Valsartan No Valsartan 320 MG 320 MG 320 MG Nasonex 50 Nasonex 50 No 2{spray QD Nasonex 50 MCG/ACT MCG/ACT s_in_ea MCG/ACT ch_nost ril} Spironolact Spironolact No 1{table QD Spironolac one 50 MG one 50 MG t} tone 50 MG Cetirizine Cetirizine No Cetirizine HCl 10 MG HCl 10 MG HCl 10 MG Benzonatate Benzonatate No 1{capsu TID Benzonatat 200 MG 200 MG le} e 200 MG Turmeric Turmeric No Turmeric 400 MG 400 MG 400 MG Spironolact Spironolact No Spironolac one 50 MG one 50 MG tone 50 MG Simvastatin Simvastatin No 1{table QD Simvastati 40 MG 40 MG t_in_th n 40 MG e_eveni ng} Metoprolol Metoprolol No 1{table BID Metoprolol Tartrate Tartrate t_with_ Tartrate 100 MG 100 MG food} 100 MG Sucralfate Sucralfate No Sucralfate 1 GM 1 GM 1 GM Protonix 40 Protonix 40 No 1{table QD Protonix MG MG t} 40 MG Magnesium Magnesium No Magnesium Spironolact Spironolact No Spironolac one 50 MG one 50 MG tone 50 MG Nasonex 50 Nasonex 50 No 2{spray QD Nasonex 50 MCG/ACT MCG/ACT s_in_ea MCG/ACT ch_nost ril} NIFEdipine NIFEdipine No 1{table QD NIFEdipine ER 30 MG ER 30 MG t_on_an ER 30 MG _empty_ stomach } Spironolact Spironolact No 1{table QD Spironolac one 50 MG one 50 MG t} tone 50 MG Pantoprazol Pantoprazol No Pantoprazo e Sodium 40 e Sodium 40 le Sodium MG MG 40 MG Valsartan Valsartan No 1{table QD Valsartan 320 MG 320 MG t} 320 MG Turmeric Turmeric No Turmeric 400 MG 400 MG 400 MG Valsartan Valsartan No Valsartan 320 MG 320 MG 320 MG Metoprolol Metoprolol No 1{table BID Metoprolol Tartrate Tartrate t_with_ Tartrate 100 MG 100 MG food} 100 MG Sucralfate Sucralfate No Sucralfate 1 GM 1 GM 1 GM NIFEdipine NIFEdipine No 1{table QD NIFEdipine ER 30 MG ER 30 MG t_on_an ER 30 MG _empty_ stomach } Cetirizine Cetirizine No Cetirizine HCl 10 MG HCl 10 MG HCl 10 MG Simvastatin Simvastatin No Simvastati 40 MG 40 MG n 40 MG Montelukast Montelukast No Montelukas Sodium 10 Sodium 10 t Sodium MG MG 10 MG Benzonatate Benzonatate No 1{capsu TID Benzonatat 200 MG 200 MG le} e 200 MG Ray Ray No 1{table QD Ray Aspirin EC Aspirin EC t} Aspirin EC Low Dose 81 Low Dose 81 Low Dose MG MG 81 MG Magnesium Magnesium No Magnesium Kwarter Rya No 1{table QD Ray Aspirin EC Aspirin EC t} Aspirin EC Low Dose 81 Low Dose 81 Low Dose MG MG 81 MG NIFEdipine NIFEdipine No 1{table QD NIFEdipine ER 30 MG ER 30 MG t_on_an ER 30 MG _empty_ stomach } NIFEdipine NIFEdipine No 1{table QD NIFEdipine ER 30 MG ER 30 MG t_on_an ER 30 MG _empty_ stomach } Protonix 40 Protonix 40 No 1{table QD Protonix MG MG t} 40 MG Valsartan Valsartan No 1{table QD Valsartan 320 MG 320 MG t} 320 MG Spironolact Spironolact No Spironolac one 50 MG one 50 MG tone 50 MG Pantoprazol Pantoprazol No Pantoprazo e Sodium 40 e Sodium 40 le Sodium MG MG 40 MG Valsartan Valsartan No Valsartan 320 MG 320 MG 320 MG Nasonex 50 Nasonex 50 No 2{spray QD Nasonex 50 MCG/ACT MCG/ACT s_in_ea MCG/ACT ch_nost ril} Spironolact Spironolact No 1{table QD Spironolac one 50 MG one 50 MG t} tone 50 MG Cetirizine Cetirizine No Cetirizine HCl 10 MG HCl 10 MG HCl 10 MG Benzonatate Benzonatate No 1{capsu TID Benzonatat 200 MG 200 MG le} e 200 MG Turmeric Turmeric No Turmeric 400 MG 400 MG 400 MG Simvastatin Simvastatin No Simvastati 40 MG 40 MG n 40 MG Montelukast Montelukast No Montelukas Sodium 10 Sodium 10 t Sodium MG MG 10 MG Metoprolol Metoprolol No 1{table BID Metoprolol Tartrate Tartrate t_with_ Tartrate 100 MG 100 MG food} 100 MG Sucralfate Sucralfate No Sucralfate 1 GM 1 GM 1 GM Valsartan Valsartan No 1{table QD Valsartan 320 MG 320 MG t} 320 MG Montelukast Montelukast No Montelukas Sodium 10 Sodium 10 t Sodium MG MG 10 MG Spironolact Spironolact No Spironolac one 50 MG one 50 MG tone 50 MG Ray Ray No 1{table QD Ray Aspirin EC Aspirin EC t} Aspirin EC Low Dose 81 Low Dose 81 Low Dose MG MG 81 MG Magnesium Magnesium No Magnesium Benzonatate Benzonatate No 1{capsu TID Benzonatat 200 MG 200 MG le} e 200 MG Turmeric Turmeric No Turmeric 400 MG 400 MG 400 MG Simvastatin Simvastatin No Simvastati 40 MG 40 MG n 40 MG NIFEdipine NIFEdipine No 1{table QD NIFEdipine ER 30 MG ER 30 MG t_on_an ER 30 MG _empty_ stomach } Spironolact Spironolact No 1{table QD Spironolac one 50 MG one 50 MG t} tone 50 MG Metoprolol Metoprolol No Metoprolol Tartrate Tartrate Tartrate 100 MG 100 MG 100 MG Valsartan Valsartan No Valsartan 320 MG 320 MG 320 MG NIFEdipine NIFEdipine No 1{table QD NIFEdipine ER 30 MG ER 30 MG t_on_an ER 30 MG _empty_ stomach } Cetirizine Cetirizine No Cetirizine HCl 10 MG HCl 10 MG HCl 10 MG Pantoprazol Pantoprazol No Pantoprazo e Sodium 40 e Sodium 40 le Sodium MG MG 40 MG Protonix 40 Protonix 40 No 1{table QD Protonix MG MG t} 40 MG Metoprolol Metoprolol No 1{table BID Metoprolol Tartrate Tartrate t_with_ Tartrate 100 MG 100 MG food} 100 MG Nasonex 50 Nasonex 50 No 2{spray QD Nasonex 50 MCG/ACT MCG/ACT s_in_ea MCG/ACT ch_nost ril} Sucralfate Sucralfate No Sucralfate 1 GM 1 GM 1 GM Protonix 40 Protonix 40 No 1{table QD Protonix MG MG t} 40 MG Sucralfate Sucralfate No Sucralfate 1 GM 1 GM 1 GM Simvastatin Simvastatin No 1{table QD Simvastati 40 MG 40 MG t_in_th n 40 MG e_eveni ng} Benzonatate Benzonatate No 1{capsu TID Benzonatat 200 MG 200 MG le} e 200 MG Magnesium Magnesium No Magnesium Montelukast Montelukast No Montelukas Sodium 10 Sodium 10 t Sodium MG MG 10 MG NIFEdipine NIFEdipine No 1{table QD NIFEdipine ER 60 MG ER 60 MG t_on_an ER 60 MG _empty_ stomach } Cetirizine Cetirizine No 1{table QD Cetirizine HCl 10 MG HCl 10 MG t} HCl 10 MG Pantoprazol Pantoprazol No Pantoprazo e Sodium 40 e Sodium 40 le Sodium MG MG 40 MG Spironolact Spironolact No Spironolac one 50 MG one 50 MG tone 50 MG Nasonex 50 Nasonex 50 No 2{spray QD Nasonex 50 MCG/ACT MCG/ACT s_in_ea MCG/ACT ch_nost ril} Metoprolol Metoprolol No 1{table BID Metoprolol Tartrate Tartrate t_with_ Tartrate 100 MG 100 MG food} 100 MG Simvastatin Simvastatin No Simvastati 40 MG 40 MG n 40 MG Pantoprazol Pantoprazol No Pantoprazo e Sodium e Sodium le Sodium Metoprolol Metoprolol No Metoprolol Tartrate Tartrate Tartrate 100 MG 100 MG 100 MG NIFEdipine NIFEdipine No 1{table QD NIFEdipine ER 60 MG ER 60 MG t_on_an ER 60 MG _empty_ stomach } Valsartan Valsartan No 1{table QD Valsartan 320 MG 320 MG t} 320 MG Valsartan Valsartan No Valsartan 320 MG 320 MG 320 MG Spironolact Spironolact No 1{table QD Spironolac one 50 MG one 50 MG t} tone 50 MG Ray Ray No 1{table QD Ray Aspirin EC Aspirin EC t} Aspirin EC Low Dose 81 Low Dose 81 Low Dose MG MG 81 MG Immunizations Ordered Immunization Filled Immunization Date Status Commen ts Source Name Name FluAD FluAD 2019-12-13 Completed [facility] 16:20:[facility] - [facility] FluAD FluAD 2019-12-13 Completed [facility] 16:20:00 - [facility] FluAD FluAD 2019-12-13 Completed [facility] 16:20:00 - [facility] FluAD FluAD 2019-12-13 Completed [facility] 16[facility]20:00 - [facility] FluAD FluAD 2019-12-13 Completed [facility] 16:20:00 - [facility] FluAD FluAD 2019-12-13 Completed [facility] 16:20:00 - [facility] FluAD FluAD 2019-12-13 Completed [facility] 16:20:00 - [facility] FluAD FluAD 2019-12-13 Completed [facility] 16:20:00 - [facility] FluAD FluAD 2019-12-13 Completed [facility] 16:20:00 - [facility] FluAD FluAD 2019-12-13 Completed [facility] 16[facility]20:00 - [facility] FluAD FluAD 2019-12-13 Completed [facility] 16:20:00 - [facility] FluAD FluAD 2019-12-13 Completed [facility] 16:20:00 [facility] Vital Signs Vital Name Observation Time Observation Value Comments Source height 2022-01-26 14:40:00 60 [in_i] [facility] weight 2022-01-26 14:40:00 180.6 [lb_av] [facility] temperature 2022-01-26 14:40:00 96.8 [degF] [facility] bmi 2022-01-26 14:40:00 35.27 kg/m2 [facility] oximetry 2022-01-26 14:40:00 99 % [facility] respiratory rate 2022-01-26 14:40:00 16 /min Comm on [facility] blood pressure 2022-01-26 14:40:00 138 mm[Hg] [facility] - systolic [facility] blood pressure 2022-01-26 14:40:00 63 mm[Hg] [facility] - diastolic [facility] height 2021-10-27 14:00:00 60 [in_i] [facility] weight 2021-10-27 14:00:00 180.2 [lb_av] [facility] temperature 2021-10-27 14:00:00 97.5 [degF] [facility] bmi 2021-10-27 14:00:00 35.19 kg/m2 [facility] oximetry 2021-10-27 14:00:00 100 % [facility] respiratory rate 2021-10-27 14:00:00 16 /min Comm on [facility] blood pressure 2021-10-27 14:00:00 126 mm[Hg] [facility] - systolic [facility] blood pressure 2021-10-27 14:00:00 61 mm[Hg] [facility] - diastolic [facility] height 2021-10-27 15:00:00 60 [in_i] [facility] weight 2021-10-27 15:00:00 180.2 [lb_av] Common [facility] temperature 2021-10-27 15:00:00 97.5 [degF] Common [facility] bmi 2021-10-27 15:00:00 35.19 kg/m2 [facility] oximetry 2021-10-27 15:00:00 100 % [facility] blood pressure 2021-10-27 15:00:00 126 mm[Hg] Common [facility] - systolic [facility] blood pressure 2021-10-27 15:00:00 61 mm[Hg] [facility] - diastolic [facility] height 2021-07-27 13:00:00 60 [in_i] Common [facility] weight 2021-07-27 13:00:00 182 [lb_av] [facility] temperature 2021-07-27 13:00:00 97.6 [degF] [facility] bmi 2021-07-27 13:00:00 35.54 kg/m2 [facility] S [facility] oximetry 2021-07-27 13:00:00 98 % [facility] respiratory rate 2021-07-27 13:00:00 14 /min [facility] blood pressure 2021-07-27 13:00:00 108 mm[Hg] Common [facility] - systolic [facility] blood pressure 2021-07-27 13:00:00 55 mm[Hg] [facility] - diastolic [facility] height 2021-06-24 11:20:00 60 [in_i] Common S [facility] weight 2021-06-24 11:20:00 189 [lb_av] Common [facility] temperature 2021-06-24 11:20:00 98 [degF] [facility] bmi 2021-06-24 11:20:00 36.91 kg/m2 Common [facility] height 2020-12-22 16:40:00 60 [in_i] Common [facility] weight 2020-12-22 16:40:00 180 [lb_av] Common [facility] bmi 2020-12-22 16:40:00 35.15 kg/m2 [facility] Procedures This patient has no known procedures. Encounters Start End Encounter Admission Attending Care Care Encounter Source Date/Time Date/Time Type Type Clinicians Facility Department ID 2022-09-28 Outpatient Montes De Oca, STLMLC STLMLC [id number] Common 14:20:00 Michelle [id number] [facility] 2022-07-21 Outpatient Montes De Oca, STLMLC STLMLC [id number] Common 16:40:00 Michelle [id number] [facility] 2022-07-15 Outpatient STLMLC STLMLC [id number] Common 13:13:00 [id number] [facility] 2022-04-26 Outpatient Kiana, STLMLC STLMLC [id number] Common 15:42:01 Vandana [id number] [facility] 2022-04-15 Outpatient Kiana, STLMLC STLMLC [id number] Common 09:51:00 Vandana 33099 [facility] 2022-01-22 Outpatient Garcia, Na STLMLC STLMLC [id number] 2 Common 09:42:03 [facility] 2021-10-22 Outpatient Garcia, Na STLMLC STLMLC [id number] 2 Common 13:40:00 [facility] 2021-07-23 Outpatient Garcia, Na STLMLC STLMLC [id number] 2 Common 15:11:02 [facility] 2021-06-23 Outpatient Garcia, Na STLMLC STLMLC [id number] 2 Common 15:37:02 [facility] 2021-04-07 Outpatient Garcia, Na STLMLC STLMLC [id number] 2 Common 15:18:01 [id number] [facility] 2021-03-18 Outpatient Garcia, Na STLMLC STLMLC [id number] 2 Common 14:06:18 [id number] [facility] 2021-03-18 Outpatient Garcia, Na STLMLC STLMLC [id number] 2 Common 13:51:45 [id number] [facility] 2021-03-18 Outpatient Garcia, Na STLMLC STLMLC [id number] 2 Common 13:50:46 [id number] [facility] 2021-03-18 Outpatient Garcia, Na STLMLC STLMLC [id number] 2 Common 13:47:43 [id number] [facility] 2021-03-18 Outpatient Garcia, Na STLMLC STLMLC [id number] 2 Common 13:12:37 75549 [facility] 2021-03-18 Outpatient Garcia, Na STLMLC STLMLC [id number] 2 Common 13:08:46 50078 [facility] 2021-03-18 Outpatient Garcia, Na STLMLC STLMLC [id number] 2 Common 12:47:57 [id number] [facility] 2021-03-18 Outpatient Garcia, Na STLMLC STLMLC [id number] 2 Common 12:47:14 [id number] [facility] 2021-03-18 Outpatient Garcia, Na STLMLC STLMLC [id number] 2 Common 12:39:19 [id number] [facility] 2021-03-18 Outpatient Garcia, Na STLMLC STLMLC [id number] 2 Common 12:29:06 [id number] [facility] 2021-03-18 Outpatient Garcia, Na STLMLC STLMLC [id number] 2 Common 12:24:10 [id number] [facility] 2021-03-18 Outpatient Garcia, Na STLMLC STLMLC [id number] 2 Common 12:23:59 [id number] [facility] 2021-03-18 Outpatient Garcia, Na STLMLC STLMLC [id number] 2 Common 12:15:16 [id number] [facility] 2021-03-18 Outpatient Garcia, Na STLMLC STLMLC [id number] 2 Common 12:08:58 75726 [facility] 2021-03-18 Outpatient Garcia, Na STLMLC STLMLC [id number] 2 Common 11:59:48 [id number] [facility] 2021-03-18 Outpatient Garcia, Na STLMLC STLMLC [id number] 2 Common 11:58:29 [id number] [facility] 2021-03-18 Outpatient Garcia, Na STLMLC STLMLC [id number] 2 Common 11:57:45 [id number] [facility] 2021-03-18 Outpatient Garcia, Na STLMLC STLMLC [id number] 2 Common 11:57:08 [id number] [facility] 2021-03-18 Outpatient Garcia, Na STLMLC STLMLC [id number] 2 Common 11:32:20 [id number] [facility] 2021-03-18 Outpatient Garcia, Na STLMLC STLMLC [id number] 2 Common 11:31:59 [id number] [facility] 2021-03-18 Outpatient Garcia, Na STLMLC STLMLC [id number] 2 Common 11:18:41 [id number] [facility] 2022-01-26 2022-01-26 OFFICE STLMLC STLMLC [id number] Co mmon 00:00:00 00:00:00 VISIT [facility] LEVEL 4 [facility] 2021-11-24 2021-11-24 (TEL) STLMLC STLMLC [id number] Co mmon 00:00:00 00:00:00 [facility] 2021-10-27 2021-10-27 SUB ANNUAL STLMLC STLMLC [id number] Common 00:00:00 00:00:00 MCR [facility] VISIT [facility] 2021-10-27 2021-10-27 OFFICE STLMLC STLMLC [id number] Co mmon 00:00:00 00:00:00 VISIT [facility] LEVEL 3 [facility] 2021-07-27 2021-07-27 OFFICE STLMLC STLMLC [id number] Co mmon 00:00:00 00:00:00 VISIT [facility] PT LEVEL 3 [facility] 2021-07-21 2021-07-21 (TEL) STLMLC STLMLC [id number] Co mmon 00:00:00 00:00:00 [facility] 2021-06-24 2021-06-24 OFFICE STLMLC STLMLC [id number] Co mmon 00:00:00 00:00:00 VISIT [facility] PT LEVEL 3 [facility] 2021-06-23 2021-06-23 (TEL) STLMLC STLMLC [id number] Co mmon 00:00:00 00:00:00 [facility] 2021-04-07 2021-04-07 (TEL) STLMLC STLMLC [id number] Co mmon 00:00:00 00:00:00 [facility] 2021-04-07 2021-04-07 OFFICE STLMLC STLMLC [id number] Co mmon 00:00:00 00:00:00 VISIT [facility] PT LEVEL 3 [facility] 2020-12-22 2020-12-22 (TEL) STLMLC STLMLC [id number] Co mmon 00:00:00 00:00:00 [facility] 2020-12-22 2020-12-22 OFFICE STLMLC STLMLC [id number] Co mmon 00:00:00 00:00:00 VISIT [facility] PT LEVEL 3 [facility] 2020-07-30 2020-07-30 Outpatient STLMLC STLMLC [id number] Common 00:00:00 00:00:00 [facility] 2020-06-30 2020-06-30 Outpatient STLMLC STLMLC [id number] Common 00:00:00 00:00:00 [facility] 2020-05-26 2020-05-26 Outpatient STLMLC STLMLC [id number] Common 00:00:00 00:00:00 [facility] 2020-05-19 2020-05-19 Outpatient STLMLC STLMLC [id number] Common 00:00:00 00:00:00 [facility] 2020-05-18 2020-05-18 Outpatient STLMLC STLMLC [id number] Common 00:00:00 00:00:00 [facility] 2020-05-02 2020-05-02 Outpatient STLMLC STLMLC [id number] Common 00:00:00 00:00:00 [facility] 2020-05-01 2020-05-01 Outpatient STLMLC STLMLC [id number] Common 00:00:00 00:00:00 [facility] 2020-04-23 2020-04-23 Outpatient Jose Martin GOMEZ, [facility] [id number] Univers 08:10:00 08:10:00 YULIANA [id number] [facility] 2020-04-23 2020-04-23 Outpatient Jose Martin GOMEZ [facility] [id number] Univers 08:10:00 08:10:00 YULIANA [facility] 2020-04-22 2020-04-22 Outpatient STLMLC STLMLC [id number] Common 00:00:00 00:00:00 [facility] 2020-04-21 2020-04-21 Outpatient STLMLC STLMLC [id number] Common 00:00:00 00:00:00 [facility] 2020-04-01 2020-04-01 Outpatient STLMLC STLMLC [id number] Common 00:00:00 00:00:00 [facility] 2020-03-26 2020-03-26 Outpatient Jose Martin GOMEZ [facility] [id number] Univers 10:00:00 10:00:00 YUL[facility]NA [facility] 2020-02-27 2020-02-27 Outpatient STLMLC STLMLC [id number] Common 00:00:00 00:00:00 [facility] 2020-02-25 2020-02-25 Outpatient STLMLC STLMLC [id number] Common 00:00:00 00:00:00 [facility] 2019-12-19 2019-12-19 Outpatient STLMLC STLMLC [id number] Common 00:00:00 00:00:00 [facility] 2019-12-13 2019-12-13 Outpatient STLMLC STLMLC [id number] Common 00:00:00 00:00:00 [facility] 2019-10-01 2019-10-01 [id number] Common 15:30:00 15:30:[address] [facility] 2019-09-10 2019-09-10 Outpatient STLMLC STLMLC [id number] Common 00:00:00 00:00:00 [facility] 2019-08-29 2019-08-29 [facility] [id number] Common 09:56:00 09:56:[address] [facility] 2019-06-11 2019-06-11 [id number] Common 14:00:00 14:00:[address] [place] [address] [facility] Results This patient has no known results.
[2022-10-11] MEDS ORDERED: HYDROCODONE/APAP 5/325 MG TAB ONE (16:50)
[2022-10-11] MEDS ORDERED: ONDANSETRON 4 MG (ODT) TAB ONE (16:50)
--- NOTE | 2022-10-11 16:50 | RAD REPORT ---
EXAM DESCRIPTION: RAD -Hand Left 3 View - 10/11/2022 4:21 pm CLINICAL HISTORY: Left hand pain FINDINGS: No fracture or dislocation is seen.
--- NOTE | 2022-10-11 17:12 | ER ---
Nurse's Notes [facility] Name: Jocelyn Taylor Age: 77 yrs Sex: Female : 1945 Arrival Date: 10/11/2022 Time: 13:40 Bed 24 Private MD: Diagnosis: Pain in left wrist Presentation: 10/11 13:51 Chief complaint: Patient states: Having severe L arm pain since playing with her ll1 grandkid yesterday. Coronavirus screen: Vaccine status: Patient reports receiving the 2nd dose of the covid vaccine. Client denies travel out of the [place] in the last 14 days. At this time, the client does not indicate any symptoms associated with coronavirus-19. Ebola Screen: Patient denies travel to an Ebola-affected area in the 21 days before illness onset. Initial Sepsis Screen: Does the patient meet any 2 criteria? No. Patient's initial sepsis screen is negative. Does the patient have a suspected source of infection? No. Patient's initial sepsis screen is negative. Risk Assessment: Do you want to hurt yourself or someone else? Patient reports no desire to harm self or others. Onset of symptoms was October 10, 2022. 13:51 Method Of Arrival: Ambulatory ll1 13:51 Acuity: BLAS 4 ll1 Historical: - Allergies: 13:50 No Known Allergies; ll1 - PMHx: 13:50 Hypertension; High Cholesterol; GERD; seasonal allergies; ll1 - Immunization history:: Adult Immunizations up to date. - Social history:: Smoking status: Patient denies any tobacco usage or history of. Vital Signs: 13:51 BP 124 / 59; Pulse 71; Resp 16; Temp 97.8; Pulse Ox 100% ; Weight 79.38 kg; Height 5 ll1 ft. 0 in. ; 17:20 BP 109 / 62; Pulse 69; Resp 16; Temp 97.3; Pulse Ox 99% on R/A; zm 13:51 Body Mass Index 34.18 (79.38 kg, 152.4 cm) ll1 ED Course: 13:45 Patient arrived in ED. im 13:51 Ximena Montgoemry MD is Attending Physician. cp3 13:52 Triage completed. ll1 13:52 Arm band placed on. ll1 16:23 Hand Left 3 View In Process Unspecified. EDMS 16:32 Vanna Cabello, RN is Primary Nurse. jl7 17:00 Patient has correct armband on for positive identification. jl7 17:00 Velcro wrist splint applied to left wrist. jl7 17:11 Martín Bonds MD is Referral Physician. cp3 Administered Medications: 16:42 Drug: HYDROcodone-acetaminophen PO 5 mg-325 mg 1 tabs Route: PO; jl7 17:28 Follow up: Response: No adverse reaction; Pain is decreased jl7 16:42 Drug: Ondansetron PO 4 mg Route: PO; jl7 17:28 Follow up: Response: No adverse reaction jl7 Medication: 17:28 VIS not applicable for this client. jl7 Outcome: 17:11 Discharge ordered by . cp3 17:29 Discharged to home ambulatory. jl7 17:29 Condition: stable 17:29 Discharge instructions given to patient, Instructed on discharge instructions, follow up and referral plans. Demonstrated understanding of instructions, follow-up care. 17:29 Patient left the ED. jl7 Signatures: Dispatcher [employer] Ximena Rizvi MD MD cp3 Vanna Cabello, RN RN jl7 Khari Quiñones RN RN ll1 Masha Flores Itzel im
--- NOTE | 2022-10-11 17:12 | EDPHYS ---
Physician Documentation [facility] [place] [place] Name: Jocelyn Taylor Age: 77 yrs Sex: Female : 1945 Arrival Date: 10/11/2022 Time: 13:40 Bed 24 Private MD: ED Physician Ximena Montgomery HPI: 10/11 17:13 This 77 yrs old Black Female presents to ER via Ambulatory with complaints of Hand Pain cp3 - left, Arm Pain - left. Historical: - Allergies: 13:50 No Known Allergies; ll1 - PMHx: 13:50 Hypertension; High Cholesterol; GERD; seasonal allergies; ll1 - Immunization history:: Adult Immunizations up to date. - Social history:: Smoking status: Patient denies any tobacco usage or history of. Vital Signs: 13:51 BP 124 / 59; Pulse 71; Resp 16; Temp 97.8; Pulse Ox 100% ; Weight 79.38 kg; Height 5 ll1 ft. 0 in. ; 17:20 BP 109 / 62; Pulse 69; Resp 16; Temp 97.3; Pulse Ox 99% on R/A; zm 13:51 Body Mass Index 34.18 (79.38 kg, 152.4 cm) ll1 MDM: 14:12 Patient medically screened. cp3 10/11 15:09 Order name: Hand Left 3 View; Complete Time: 17:08 EDMS 10/11 14:15 Order name: Splint - Volar Wrist Splint; Complete Time: 16:43 cp3 Administered Medications: 16:42 Drug: HYDROcodone-acetaminophen PO 5 mg-325 mg 1 tabs Route: PO; jl7 17:28 Follow up: Response: No adverse reaction; Pain is decreased jl7 16:42 Drug: Ondansetron PO 4 mg Route: PO; jl7 17:28 Follow up: Response: No adverse reaction jl7 Disposition Summary: 10/11/22 17:11 Discharge Ordered Location: Home cp3 Condition: Stable cp3 Diagnosis - Pain in left wrist cp3 Followup: cp3 - With: Martín Bonds MD - When: As needed - Reason: Discharge Instructions: - Discharge Summary Sheet cp3 - Wrist Pain, Adult cp3 Forms: - Medication Reconciliation Form cp3 - Thank You Letter cp3 - Antibiotic Education cp3 - Prescription Opioid Use cp3 - Patient Portal Instructions cp3 - Leadership Thank You Letter cp3 Signatures: Dispatcher [employer] EDMS Ximena Montgomery MD MD cp3 Vanna Cabello RN RN jl7 Khari Quiñones RN RN ll1 Corrections: (The following items were deleted from the chart) 15: 14:57 Wrist Left 3 View+RAD.RAD.BRZ ordered. EDMS EDMS 15: 14:57 Hand Left 2 View+RAD.RAD.BRZ ordered. EDMS EDMS
[2022-10-11 17:35] VITALS: BP 109/62; TEMP 97.3; O2SAT 99
== END 2022-10-11 17:29 | disposition home or self-care (01) ==
LOC: ER 13:40
DX: M25.532 Pain in left wrist (principal)
CPT/HCPCS: 73130; 99283; Q0162